=== PATIENT | male | born 1955 | race African-American/Black ===

== ENCOUNTER 2018-02-09 13:01 | Day surgery (SDC) | payer OTHER ==
[2018-02-08 14:57] VITALS: BMI 35.9
[2018-02-09] MEDS ORDERED: MIDAZOLAM HCL 2 MG/2 ML SINGLE DOSE VIAL ONE (16:13)
[2018-02-09] MEDS ORDERED: PROPOFOL 20 ML ONE (16:13)
[2018-02-09] MEDS ORDERED: SODIUM CHLORIDE 0.9% P/F 10 ML VIAL IJ ONE (16:20)
[2018-02-09] MEDS ORDERED: ceFAZolin SODIUM 1 GM VIAL ONE ×2 (16:20)
[2018-02-09] MEDS ORDERED: BUPIVACAINE HCL/PF 0.25% (2.5MG/ML) 10 ML VIAL ONE (16:21)
--- NOTE | 2018-02-09 16:37 | OP ---
Operative Note - Note: Operative Date: 02/09/18 Pre-Operative Diagnosis: left varicocele-tender Operation: lt. varicocelectomy Findings: dil. spematic veins Post-Operative Diagnosis: Same as Pre-op Surgeon: Nj Erazo Anesthesia: General Specimens Removed: lt. varicouse veins Estimated Blood Loss (mls): 10 Drains, Volume Out (mls): 0 Blood Volume Replaced (mls): 0 Fluid Volume Replaced (mls): 0 Operative Report Dictated: Yes
[2018-02-09] MEDS ORDERED: ceFAZolin 2 GRAM PREMIX BAG IVPB ONE (16:45)
[2018-02-09] MEDS ORDERED: BUPIVACAINE HCL/PF 0.25% (2.5MG/ML) 10 ML VIAL IJ ONE ×2 (16:50)
[2018-02-09] MEDS ORDERED: KETOROLAC TROMETHAMINE 30 MG/1 ML VIAL ONE (17:20)
[2018-02-09 18:14] VITALS: TEMP 97.7
[2018-02-09] MEDS ORDERED: ONDANSETRON 4 MG/2 ML VIAL IVPUSH PRN (19:36)
[2018-02-09] MEDS ORDERED: oxyCODONE HCL 5 MG TABLET PO PRN ×2 (19:36)
[2018-02-09] MEDS ORDERED: KETOROLAC TROMETHAMINE 30 MG/1 ML VIAL IVPUSH ONE (19:37)
[2018-02-09] MEDS ORDERED: LACTATED RINGERS SOLUTION 1,000 ML IV SCH (19:45)
[2018-02-09 21:07] VITALS: BP 140/80; PULSE 80
--- NOTE | 2018-02-10 01:04 | OP ---
DATE OF OPERATION: 02/09/2018 PREOPERATIVE DIAGNOSIS: Tender left varicocele. POSTOPERATIVE DIAGNOSIS: Tender left varicocele. OPERATIVE PROCEDURE: Left inguinal varicocelectomy. ANESTHESIA: General. Under general anesthesia, patient was prepped and draped in the usual sterile manner. He was placed in the supine position. A left inguinal incision was made. This was carried down through skin and subcutaneous tissue. External oblique fascia was then opened in the direction of its fibers. Using both blunt and sharp dissection, the spermatic cord as well as structures were isolated and brought out the wound using a [place] drain as an anchor, using meticulous dissection the vas deferens, basal artery, spermatic artery, and dartos muscle was lysed off the dilated veins, after the veins were isolated, a proximal and distal clamp was placed on the varicose veins, a 1-cm segment was excised. The proximal and distal ends were tied with 2-0 Vicryl suture ligatures. No active bleeding was noted. The cord was placed back in its normal position. Rectus fascia was closed with running 3-0 Vicryl suture ligature. The external ring was wide open. The cord appeared to be within normal limits. The wound was irrigated. The subcutaneous was closed with 3-0 Vicryl suture ligatures. The skin was closed with theodore. Marcaine was placed in the incision postoperative for long-term analgesia. The patient tolerated the procedure well. He returned to the recovery room in good condition. Sindhu [id number]
--- NOTE | 2018-02-15 18:24 | PATH ---
Surgical Pathology Report Patient Name: JOANNE HERNANDEZ [facility]. Rec. #: [id number] /Age/Gender: 1955 (Age: 62) / M Account: [id number] Location: [facility] SURGICAL Taken: 02/09/2018 Received: 02/12/2018 Reported: 02/15/2018 Physicians: Nj Erazo M.D. Specimen(s) Received LEFT VARICOSE VEIN Clinical History Varicocele Final Diagnosis VARICOSE VEIN, LEFT, VARICOCELECTOMY: FRAGMENT OF FIBROVASCULAR AND FIBROADIPOSE TISSUE. Electronically Signed Radha Barker M.D. Gross Description Received in formalin labeled as "left varicose vein" is an irregular fibromembranous to fibrofatty soft tissue measuring 3 x 1 x 0.5 cm. The entire specimen is submitted in one cassette. MLSZ/02/12/2018 santhong/02/12/2018
== END 2018-02-09 20:40 | disposition home or self-care (01) ==
LOC: JASU-SURG 13:01
PROVIDERS: ATTEND Urology
PROC: 0VBG0ZZ Excision of Left Spermatic Cord, Open Approach (ICD-10-PCS; principal; 2018-02-09 14:30)
DX: I86.1 Scrotal varices (principal)
CPT/HCPCS: 88304-TC; 94760

== ENCOUNTER 2019-08-27 06:33 | Day surgery (SDC) | payer OTHER ==
[2019-08-26 15:04] VITALS: BMI 34.0
[2019-08-27] MEDS ORDERED: DEXAMETHASONE SOD PHOSPHATE/PF 10 MG/ML SDV ONE (09:11)
[2019-08-27] MEDS ORDERED: LIDOCAINE HCL/PF 1% SDV 5ML VIAL ONE ×2 (09:11→09:17)
--- NOTE | 2019-08-27 09:28 | HP ---
Admitting History and Physical - Admission Chief Complaint: Bilateral Leg Pain Low back Pain History of Present Illness: Pt complains of low back and leg pain due to L5 disk disease. - Smoking History Smoking history: Former smoker Have you smoked in the past 12 months: No If you are a former smoker, when did you quit?: 1987 - Alcohol/Substance Use Hx Alcohol Use: Yes (rarely) Home Medications - Allergies Allergies/Adverse Reactions: Allergies Allergy/AdvReac Type Severity Reaction Status Date / Time No Known Allergies Allergy Verified 08/27/19 06:54 - Home Medications Home Medications: Ambulatory Orders Ibuprofen 800 mg PO PRN 02/08/18 Physical Examination Vital Signs: Vital Signs Temperature 97.4 F L 08/27/19 07:28 Pulse Rate 78 08/27/19 07:28 Respiratory Rate 16 08/27/19 07:28 Blood Pressure 127/74 08/27/19 07:28 O2 Sat by Pulse Oximetry (%) 98 08/27/19 07:28 Imaging - Results MRI: Image Reviewed Assessment/Plan The patients back pain and Leg pain is due to lumbar radiculopathy. 1. I will perform L4-L5 Interlaminar epidural steroid injection. 2. Follow up in 2 weeks. Abel Rowland DO
[2019-08-27] MEDS ORDERED: IOHEXOL 180 MG/1 ML ML IJ ONE (09:45)
[2019-08-27] MEDS ORDERED: LIDOCAINE HCL 1% PRESERVATIVE FREE - 30ML VIAL IJ ONE (09:45)
[2019-08-27] MEDS ORDERED: DEXAMETHASONE SOD PHOSPHATE 10 MG/1 ML VIAL IVPUSH ONE (09:45)
[2019-08-27 10:35] VITALS: TEMP 97.5
--- NOTE | 2019-08-27 12:58 | PROC ---
Procedure Note Procedure: Preoperative Diagnosis: Lumbar Radiculopathy, Lumbar Spinal Stenosis Postoperative Diagnosis: Same Procedure Performed: Fluoroscopic Guided Interlaminar Epidural Steroid Injection at Anesthesia: Local Procedure: After the risks and benefits were explained, informed consent was obtained. The patient was then taken to the procedure room and positioned prone on the procedure table. Time out was performed. Interlaminar space was identified using fluoroscopy. The skin was prepped and draped in the usual sterile fashion. The skin and soft tissues were anesthetized using 1% lidocaine. Under intermittent fluoroscopic guidance, a #22 gauge 3.5 inch [place] was successfully directed into the posterior epidural space at the L4-L5 level, using a posterior approach and loss of resistance technique. Needle placement was then confirmed with the injection of Omnipaque 180. Epidural flow was noted and no vascular uptake was noted. A 5 cc cocktail of 2 cc normal saline and 2 cc Dexamethasone 10 mg/mL and 1 cc of 1% lidocaine was then injected at the site. The patients response was again monitored and sensorimotor examination remained unchanged. The patient tolerated the procedure well and there were no complications. The patient was taken to the post procedure recovery area in good condition. Vital signs remained stable before, and after the procedure. The patient was given oral follow-up instructions. The patient was given a follow up appointment with me in the near future. Abel Rowland DO
[2019-08-27 13:02] VITALS: BP 152/72; PULSE 77
== END 2019-08-27 12:30 | disposition home or self-care (01) ==
LOC: JASU-SURG 06:33
PROVIDERS: ATTEND Pain Medicine Pain Medicine
PROC: 3E0R33Z Introduction of Anti-inflammatory into Spinal Canal, Percutaneous Approach (ICD-10-PCS; 2019-08-27)
PROC: B01BZZZ Fluoroscopy of Spinal Cord (ICD-10-PCS; 2019-08-27)
PROC: 3E0R3BZ Introduction of Anesthetic Agent into Spinal Canal, Percutaneous Approach (ICD-10-PCS; principal; 2019-08-27 08:45)
DX: M54.16 Radiculopathy, lumbar region (principal); M48.00 Spinal stenosis, site unspecified
CPT/HCPCS: 76000-TC-FY; J1100

== ENCOUNTER 2022-04-29 12:37 | Emergency (ER) | payer OTHER ==
[2022-04-29 12:53] VITALS: BP 130/77; PULSE 81; RESP 18; TEMP 97.2; BMI 35.3
[2022-04-29] MEDS ORDERED: LIDOCAINE 5% TOPICAL PATCH TP ONE (13:13)
[2022-04-29] MEDS ORDERED: ACETAMINOPHEN 325 MG TABLET (FP) PO ONE (13:13)
[2022-04-29] MEDS ORDERED: LIDOCAINE 5% TOPICAL PATCH ONE (13:16)
[2022-04-29] MEDS ORDERED: ACETAMINOPHEN 325 MG TABLET (FP) ONE (13:16)
== END 2022-04-29 14:32 | disposition home or self-care (01) ==
LOC: JERFT 12:37
DX: S46.811A Strain of other muscles, fascia and tendons at shoulder and upper arm level, right arm, initial encounter (principal); W11.XXXA Fall on and from ladder, initial encounter
CPT/HCPCS: 73030-TC-RT-FY; 99283-25

== ENCOUNTER 2024-04-26 11:28 | Inpatient (IN) | payer OTHER ==
[2024-04-26 12:23] VITALS: BMI 35.9
[2024-04-26] MEDS ORDERED: ACETAMINOPHEN INJECTION 100 ML ONE (13:27)
[2024-04-26] MEDS: ACETAMINOPHEN 1000 MG/100 ML BAG IVPB ONE (13:34)
[2024-04-26] MEDS: SODIUM CHLORIDE 0.9% 500 ML INFUS.BAG IV ONE (13:34)
[2024-04-26 13:59] LABS: BASO % 0.4 % (0-2.0); EOS % 2.3 % (0-4.5); HEMATOCRIT 42.3 % (35.4-49); HEMOGLOBIN 14.4 GM/dL (11.7-16.9); LYMPH % 9.6 % (8-40); MCH 30.9 pg (25.7-33.7); MEAN PLT VOLUME 10.6 fl (7.5-11.1); MONO % 10.5 % (3.8-10.2); NEUT % 77.2 % (42.8-82.8); PLATELET COUNT 172 10^3/uL (134-434); RBC 4.64 M/mm3 (4.00-5.60); RDW 14.2 % (11.9-15.9); VENOUS BASE EXCESS -0.2 mmol/L (-2-2); VENOUS O2 SATURATION 23.6 % (70-80); VENOUS PCO2 47.5 mmHg (38-52); VENOUS PH 7.355 (7.310-7.410); WHITE BLOOD COUNT 6.3 K/mm3 (4.0-10.0)
[2024-04-26 14:12] LABS: INR 1.23 (0.83-1.09); PROTHROMBIN TIME (PATIENT) 13.4 SEC (9.7-13.0)
[2024-04-26 14:15] LABS: ACTIVATED PTT 34.2 SECONDS (25.2-36.5)
[2024-04-26 14:25] LABS: POTASSIUM 4.3 mmol/L (3.5-5.1)
[2024-04-26 14:29] LABS: ALBUMIN 3.6 g/dl (3.4-5.0); BLOOD UREA NITROGEN 10.7 mg/dL (7-18); CALCIUM 8.7 mg/dL (8.5-10.1)
[2024-04-26 14:34] LABS: BILIRUBIN,TOTAL 0.6 mg/dL (0.2-1); CREATININE 1.2 mg/dL (0.55-1.3); TOT PROT 7.3 g/dl (6.4-8.2)
[2024-04-26 15:09] LABS: URINE APPEARANCE CLEAR; URINE BILIRUBIN NEGATIVE (NEGATIVE); URINE COLOR YELLOW; URINE GLUCOSE (UA) NEGATIVE (NEGATIVE); URINE KETONE NEGATIVE (NEGATIVE); URINE LEUK ESTERASE NEGATIVE (NEGATIVE); URINE NITRITE NEGATIVE (NEGATIVE); URINE PROTEIN NEGATIVE (NEGATIVE)
[2024-04-26] MEDS ORDERED: CEFTRIAXONE 1 G/50 ML PREMIX 50 ML IVPB ONE (15:59)
[2024-04-26] MEDS: CEFTRIAXONE 1 GM in DEXTROSE 5%-WATER - 50 ML IVPB ONE (16:10)
[2024-04-26] MEDS ORDERED: AZITHROMYCIN IVPB 500 MG/250 ML BAG IVPB ONE (16:16)
[2024-04-26] MEDS: AZITHROMYCIN IVPB 500 MG in DEXTROSE 5%-WATER - 250 ML IVPB ONE (16:28)
[2024-04-26 17:25] LABS: HIV INTERPRETATION NEGATIVE (NEGATIVE)
[2024-04-26] MEDS: guaiFENesin/D-METHORPHAN HB 10 ML UNIT-DOSE CUPS PO PRN (20:19)
[2024-04-26] MEDS: REMDESIVIR 200 MG in SODIUM CHLORIDE 250 ML IVPB ONE (20:19)
[2024-04-26] MEDS: DEXAMETHASONE SOD PHOSPHATE 10 MG/1 ML VIAL IVPUSH SCH (20:19)
[2024-04-26] MEDS: ENOXAPARIN NA (PORCINE) 40 MG/0.4 ML DISP.SYRIN SQ SCH (20:19)
[2024-04-26] MEDS: ACETAMINOPHEN 325 MG TABLET (FP) PO ONE (21:37)
[2024-04-26] MEDS: IBUPROFEN 400 MG TABLET (FP) PO ONE (23:08)
[2024-04-27 07:04] LABS: BASO % 0.3 % (0-2.0); HEMATOCRIT 43.7 % (35.4-49); HEMOGLOBIN 14.1 GM/dL (11.7-16.9); LYMPH % 10.7 % (8-40); MCH 30.3 pg (25.7-33.7); MCHC 32.4 g/dl (32.0-35.9); MEAN CELL VOLUME 93.5 fl (80-96); MEAN PLT VOLUME 10.5 fl (7.5-11.1); MONO % 6.9 % (3.8-10.2); NEUT % 82.1 % (42.8-82.8); PLATELET COUNT 163 10^3/uL (134-434); RBC 4.68 M/mm3 (4.00-5.60); RDW 14.1 % (11.9-15.9); WHITE BLOOD COUNT 5.5 K/mm3 (4.0-10.0)
[2024-04-27 07:27] LABS: POTASSIUM 4.2 mmol/L (3.5-5.1)
[2024-04-27 07:30] LABS: ALBUMIN 3.3 g/dl (3.4-5.0); CALCIUM 8.6 mg/dL (8.5-10.1)
[2024-04-27 07:33] LABS: CREATININE 1.1 mg/dL (0.55-1.3)
[2024-04-27 07:34] LABS: BILIRUBIN,TOTAL 0.4 mg/dL (0.2-1)
[2024-04-27] MEDS: PANTOPRAZOLE 40 MG TABLET PO SCH (09:42)
[2024-04-27] MEDS: CEFTRIAXONE 1 G/50 ML PREMIX 50 ML IVPB SCH (09:42)
[2024-04-27] MEDS ORDERED: guaiFENesin 600 MG TABLET.ER (FP) PO SCH (11:15)
[2024-04-27] MEDS: BUDESONIDE/FORMETEROL FUMARATE 160/4.5 mcg INHALER IH SCH (13:26)
[2024-04-27] MEDS: SODIUM CHLORIDE NASAL SPRAY 44 ML BOTTLE NS PRN (13:27)
[2024-04-27] MEDS: FLUTICASONE PROP 0.05% 16 GM NASAL SPRAY NS SCH (13:28)
[2024-04-27] MEDS: ALBUTEROL SO4 2.5/IPRATROPIUM 0.5 INH SOL 3 ML VIAL.NEB. NEB SCH (15:21)
[2024-04-27] MEDS: REMDESIVIR 100 MG in SODIUM CHLORIDE 250 ML IVPB SCH (20:01)
[2024-04-27] MEDS: BENZONATATE 200 MG CAPSULE PO PRN (20:03)
[2024-04-29 08:05] LABS: ALBUMIN 3.2 g/dl (3.4-5.0); BLOOD UREA NITROGEN 10.9 mg/dL (7-18); CALCIUM 8.3 mg/dL (8.5-10.1)
[2024-04-29 08:08] LABS: BASO % 0.3 % (0-2.0); EOS % 0.2 % (0-4.5); HEMATOCRIT 42.6 % (35.4-49); HEMOGLOBIN 14.1 GM/dL (11.7-16.9); LYMPH % 25.6 % (8-40); MCH 30.8 pg (25.7-33.7); MEAN CELL VOLUME 93.3 fl (80-96); MONO % 9.2 % (3.8-10.2); NEUT % 64.7 % (42.8-82.8); PLATELET COUNT 202 10^3/uL (134-434); RBC 4.57 M/mm3 (4.00-5.60); RDW 14.2 % (11.9-15.9); WHITE BLOOD COUNT 6.5 K/mm3 (4.0-10.0)
[2024-04-29 08:09] LABS: POTASSIUM 3.9 mmol/L (3.5-5.1)
[2024-04-29 08:10] LABS: BILIRUBIN,TOTAL 0.4 mg/dL (0.2-1)
[2024-04-29 08:11] LABS: TOT PROT 6.7 g/dl (6.4-8.2)
[2024-05-01 07:45] VITALS: TEMP 98.2
[2024-05-01 10:48] VITALS: BP 151/87; PULSE 97; RESP 16
== END 2024-05-01 16:55 | disposition home or self-care (01) | DRG 177 ==
LOC: JER 11:28 → JERBED 15:03 → J4W 18:16
PROVIDERS: ADMIT Family Medicine; ATTEND Family Medicine
PROC: XW033E5 Introduction of Remdesivir Anti-infective into Peripheral Vein, Percutaneous Approach, New Technology Group 5 (ICD-10-PCS; principal; 2024-04-26)
DX: U07.1 COVID-19 (principal); J12.82 Pneumonia due to coronavirus disease 2019; N39.0 Urinary tract infection, site not specified; I10 Essential (primary) hypertension; J40 Bronchitis, not specified as acute or chronic; R09.02 Hypoxemia; R79.89 Other specified abnormal findings of blood chemistry; I44.7 Left bundle-branch block, unspecified; B96.20 Unspecified Escherichia coli [E. coli] as the cause of diseases classified elsewhere; E66.9 Obesity, unspecified; Z68.35 Body mass index [BMI] 35.0-35.9, adult
CPT/HCPCS: 0241U-QW; 36415; 71045-TC-FY; 80053; 81003; 82803; 82962; 83605; 83735; 83880; 84443; 84484; 85025; 85610; 85730; 86803; 86850; 86900; 86901; 87040; 87086; 87186; 87389; 93005; 93010; 94640; 99285-25; J0131; J0248; J1100